=== PATIENT | male | born 1960 | race Caucasian/White ===

== ENCOUNTER 2020-09-19 12:14 | Emergency (ER) | payer OTHER ==
[2020-09-19] MEDS ORDERED: Bacitracin Oint 1 GM U/D Packet TOP ONE (12:58)
--- NOTE | 2020-09-19 13:21 | EDM.PDOC ---
<Caroline Reilly - Last Filed: 09/19/20 13:21> ED HPI GENERAL MEDICAL PROBLEM - General Chief Complaint: Laceration Stated Complaint: FISH HOOK IN SECOND FINGER Time Seen by Provider: 09/19/20 13:05 Source of Information: Reports: Patient History Limitations: Reports: No Limitations - History of Present Illness INITIAL COMMENTS - FREE TEXT/NARRATIVE: 60 year old male arrives with a 3 prong fish hook in right middle finger. Reports it happened 45 minutes prior to arrival while fishing. Reports pain at site but no other symptoms or injuries. Onset: Today Onset Date: 09/19/20 Duration: Hour(s): Location: Reports: Other (right middle finger) Quality: Reports: Throbbing Severity: Mild Improves with: Reports: None Worsens with: Reports: None Context: Reports: Other (fishing) Associated Symptoms: Reports: No Other Symptoms - Related Data Allergies Allergy/AdvReac Type Severity Reaction Status Date / Time No Known Allergies Allergy Verified 09/19/20 12:44 Home Meds: Home Meds NK [No Known Home Meds] 09/19/20 [History] Past Medical History - Past Health History Medical/Surgical History: Denies Medical/Surgical History - Past Surgical History HEENT Surgical History: Reports: Other (See Below) Other HEENT Surgeries/Procedures: strabismis Social & Family History - Tobacco Use Tobacco Use Status *Q: Never Tobacco User Second Hand Smoke Exposure: No - Caffeine Use Caffeine Use: Reports: Coffee Other Caffeine Use: 1 cup per day - Alcohol Use Days Per Week of Alcohol Use: 0 - Recreational Drug Use Recreational Drug Use: No ED ROS GENERAL - Review of Systems Review Of Systems: See Below Constitutional: Reports: No Symptoms. Denies: Fever, Chills, Weakness HEENT: Reports: No Symptoms Respiratory: Reports: No Symptoms. Denies: Shortness of Breath, Wheezing Cardiovascular: Reports: No Symptoms. Denies: Chest Pain, Edema Endocrine: Reports: No Symptoms. Denies: Fatigue GI/Abdominal: Reports: No Symptoms. Denies: Abdominal Pain, Diarrhea, Nausea, Vomiting : Reports: No Symptoms Musculoskeletal: Reports: No Symptoms Skin: Reports: Other (3 prong fish hook to distal end of right middle finger) Neurological: Reports: No Symptoms. Denies: Dizziness, Headache, Numbness, Weakness Psychiatric: Reports: No Symptoms Hematologic/Lymphatic: Reports: No Symptoms Immunologic: Reports: No Symptoms ED EXAM, SKIN/RASH Text/Narrative:: Yimi is a well appearing male, resting on exam chair with 3 prong fish hook in right middle finger. 1 prong is imbedded in the distal right middle finger. Exam Limited By: No Limitations General Appearance: Alert, WD/WN, No Apparent Distress Ears: Normal External Exam Nose: Normal Inspection, No Blood Throat/Mouth: Normal Inspection Head: Atraumatic Neck: Normal Inspection, Non-Tender, Full Range of Motion Respiratory/Chest: No Respiratory Distress, Lungs Clear, Normal Breath Sounds Cardiovascular: Normal Peripheral Pulses, Regular Rate, Rhythm, No Edema GI/Abdominal: Soft, Non-Tender (Male) Exam: Deferred Rectal (Males) Exam: Deferred Back Exam: Normal Inspection Extremities: Normal Inspection, Normal Range of Motion, Non-Tender, No Pedal Edema Neurological: Alert, Oriented, Normal Cognition, Normal Gait Psychiatric: Normal Affect Skin: Warm, Dry, Wound/Incision (3 prong fish hook, one prong in the distal right middle finger. ) Location, Skin: Other (right middle finger) Associated features: Tenderness, Inflammation Departure - Departure Disposition: Home, Self-Care 01 Condition: Good Clinical Impression: Fish hook injury of finger - Discharge Information Instructions: Puncture Wound, [id number] Referrals: PCP,None [Primary Care Provider] - Forms: ED Department Discharge Additional Instructions: Please watch for signs of infection such as increased redness, increased pain, increased swelling, drainage or fevers. Keep wound clean and dry. Enjoy fishing! :) Sepsis Event Note (ED) - Evaluation Sepsis Screening Result: No Definite Risk <Rudolph Rubio - Last Filed: 09/20/20 07:24> ED EXAM, SKIN/RASH Exam: See Below Course - Vital Signs Last Recorded V/S: Last Vital Signs Temp 97.7 F 09/19/20 12:45 Pulse 58 L 09/19/20 12:45 Resp 16 09/19/20 12:45 BP 146/77 H 09/19/20 12:45 Pulse Ox 97 09/19/20 12:45 - Orders/Labs/Meds Meds: Medications Discontinued Medications Generic Name Dose Route Start Last Admin Trade Name Freq PRN Reason Stop Dose Admin Bacitracin 1 dose 09/19/20 12:58 09/19/20 13:04 Bacitracin Oint 1 Gm U/D Packet TOP 09/19/20 12:59 1 dose ONETIME ONE Administration Lidocaine HCl 5 ml 09/19/20 12:58 09/19/20 13:05 Lidocaine 1% 5 Ml Sdv INJECT 09/19/20 12:59 5 ml ONETIME ONE Administration Departure - Departure Time of Disposition: 13:43 Attestation - Student - Attestation Statement Attestation Statement: I personally performed or re-performed the physical examination and medical decision making. I have verified all student documentation or findings, including history, physical exam and/or medical decision making.
== END 2020-09-19 13:35 | disposition home or self-care (01) ==
LOC: JP.ED 12:14
DX: S60.452A Superficial foreign body of right middle finger, initial encounter (principal); W45.8XXA Other foreign body or object entering through skin, initial encounter
CPT/HCPCS: 99282